=== PATIENT | female | born 1930 | race Caucasian/White ===

== ENCOUNTER 2017-04-06 18:39 | Emergency (ER) | payer MEDICARE, OTHER ==
[~2017-04-06] VITALS: Ht 157.5 cm; Wt 56.7 kg
--- NOTE | 2017-04-06 19:05 | NUR ---
PT A/OX4 BREATHING EFFORTLESSLY ON ROOM AIR, PT C/O RIGHT SHOULDER PAIN S/P FALL EARLIER TODAY, PT ON MONITOR, FAMILY AT BEDSIDE MD MADE AWARE WILL CONTINUE TO MONITOR.
[2017-04-06] MEDS ORDERED: HYDROCODONE/APAP 5/325MG 1 EACH TABLET ONE (19:26)
[2017-04-06] MEDS ORDERED: ONDANSETRON 4 MG TAB.RAPDIS ONE ×2 (19:26→21:41)
[2017-04-06] MEDS ORDERED: HYDROCODONE/APAP 5/325MG 1 EACH TABLET PO ONE (19:30)
[2017-04-06] MEDS ORDERED: ONDANSETRON 4 MG TAB.RAPDIS SL ONE ×2 (19:30→22:00)
--- NOTE | 2017-04-06 19:41 | NUR ---
XRAY AT BEDSIDE
--- NOTE | 2017-04-06 20:57 | NUR ---
SPOKE WITH ADMITTING ON, PRINTING OUT UPDATED FACE SHEET.
--- NOTE | 2017-04-06 22:05 | NUR ---
ADVISED DR. NARANJO OF PT'S SpO2 91%, WHICH HAS BEEN PT'S BASELINE UPON ARRIVAL TO ER. DR. NARANJO REEVALUATED THE PT AND STATED SHE IS STABLE FOR DISCHARGE.
--- NOTE | 2017-04-06 22:16 | NUR ---
Patient discharged to home in stable condition. Written and verbal after care instructions given. Patient verbalizes understanding of instruction. PT REPORT GIVEN TO EMT
--- NOTE | 2017-04-06 22:16 | NUR ---
Patient discharged by S ambulance for transport home in stable condition. Written and verbal after care instructions given. Patient verbalizes understanding of instruction. IV removed. Catheter intact and site benign. Pressure and 4x4 applied to site. No bleeding noted. VSS, NAD noted on DC.
[2017-04-06 22:17] VITALS: BP 118/76
== END 2017-04-06 22:18 | disposition home or self-care (01) ==
LOC: ER 18:41
DX: S42.201A Unspecified fracture of upper end of right humerus, initial encounter for closed fracture (principal); F32.9 Major depressive disorder, single episode, unspecified; F41.9 Anxiety disorder, unspecified; I10 Essential (primary) hypertension; W01.0XXA Fall on same level from slipping, tripping and stumbling without subsequent striking against object, initial encounter; Y93.89 Activity, other specified; Y92.89 Other specified places as the place of occurrence of the external cause; Y99.8 Other external cause status
CPT/HCPCS: 29105; 73060; 99284; A4606; Q0162 ×2; Z7610

== ENCOUNTER 2017-04-08 22:36 | Inpatient (IN) | payer OTHER, MEDICARE ==
[~2017-04-08] VITALS: Ht 157.5 cm; Wt 72.6 kg
--- NOTE | 2017-04-08 22:40 | NUR ---
TO BED 6 AN 87 YO FEMALE PT BIBA#88 FROM HOME, PT C/O RIGHT HIP PAIN AND NOT BEING ABLE TO WALK S/P GLF 3 DAYS AGO. NAD NOTED. VSS. NONDIAPHORETIC. PLACED ON CARDIAC AND VS MONITORING. COMFORT MEASURES RENDERED. MAINTAINED GOOD BODY ALIGNMENT.
--- NOTE | 2017-04-08 22:48 | NUR ---
XR TECH AT BEDSIDE.
--- NOTE | 2017-04-08 23:20 | NUR ---
started a saline lock on the left wrist g20, blood drawn and sent to lab.
[2017-04-08] MEDS ORDERED: ONDANSETRON HCL/PF 4 MG/2 ML VIAL IVP PRN (23:30)
[2017-04-08] MEDS ORDERED: ZOLPIDEM TARTRATE 5 MG TABLET PO PRN (23:30)
[2017-04-08] MEDS ORDERED: Z GUARD REMEDY 2 OZ OINT TP PRN (23:30)
[2017-04-08] MEDS ORDERED: ENOXAPARIN SODIUM 40 MG/0.4 ML DISP.SYRIN SQ SCH (23:30)
[2017-04-08] MEDS ORDERED: HYDROCODONE/APAP 5/325MG 1 EACH TABLET PO PRN (23:30)
[2017-04-08] MEDS ORDERED: MAGNESIUM HYDROXIDE 30 ML UDC PO PRN (23:30)
[2017-04-08] MEDS ORDERED: MAG HYDROX/AL HYDROX/SIMETH 30 ML UDC PO PRN (23:30)
[2017-04-08 23:33] LABS: EOSINOPHILS % (AUTO) 0.2 % (0.0-6.0); HEMATOCRIT 33 % (33-45); HEMOGLOBIN 9.9 g/dL (11.5-14.8); LYMPHOCYTES # (AUTO) 0.8 /CMM (0.8-4.8); LYMPHOCYTES % (AUTO) 6.2 % (20.0-44.0); MEAN CORPUSCULAR HEMOGLOBIN 21 PG (26.0-33.0); MEAN CORPUSCULAR HGB CONC 30 g/dl (31.0-36.0); MEAN CORPUSCULAR VOLUME 70 fL (82-100); MONOCYTES # (AUTO) 0.4 /CMM (0.1-1.30); MONOCYTES % (AUTO) 3.1 % (2.0-12.0); NEUTROPHILS # (AUTO) 11.9 /CMM (1.8-8.9); NEUTROPHILS % (AUTO) 90.5 % (43.0-81.0); PLATELET COUNT (AUTO) 103 /CMM (150-450); RDW COEFFICIENT OF VARIATION 15.1 (11.5-15.0); RED BLOOD CELL COUNT(AUTO) 4.64 MIL/uL (4.0-5.2); WHITE BLOOD COUNT (AUTO) 13.2 K/uL (4.3-11.0)
[2017-04-08 23:41] LABS: CALCIUM, SERUM 8.8 mg/dL (8.5-10.1); CARBON DIOXIDE 23 mmol/L (21-32); CHLORIDE 95 mmol/L (98-107); CREATININE 2.6 mg/dL (0.6-1.3); GLUCOSE 161 mg/dL (74-106); POTASSIUM 4.7 mmol/L (3.5-5.1); SODIUM SERUM 126 mmol/L (136-145); UREA NITROGEN, BLOOD 68 mg/dL (7-18)
--- NOTE | 2017-04-08 23:42 | NUR ---
CALLED [facility] WAS PAGED.
[2017-04-08] MEDS ORDERED: ATEN50TA PO (23:49)
[2017-04-08] MEDS ORDERED: TRAM50TA2 PO (23:49)
[2017-04-08] MEDS ORDERED: LORA0.5T PO (23:49)
[2017-04-08] MEDS ORDERED: TRIA1CAP6 PO (23:49)
[2017-04-08] MEDS ORDERED: SERT25TA5 PO (23:49)
--- NOTE | 2017-04-08 23:52 | NUR ---
Report givent to Nicole ALEXANDRE for admission and hiwot.
--- NOTE | 2017-04-08 23:54 | NUR ---
BED CHANGED TO 324-1
[2017-04-09] VITALS: BP 128/62
[2017-04-09 00:07] LABS: INR 1.14 (0.87-1.13); PROTHROMBIN TIME 11.9 SECS (9.5-12.7)
[2017-04-09 00:09] LABS: BAND % (MANUAL) 3 % (0.0-5.0); LYMPHOCYTES % (MANUAL) 12 % (16-48); MONOCYTES % (MANUAL) 4 % (0-11.0); NEUTROPHILS % (MANUAL) 81 (42-76)
--- NOTE | 2017-04-09 00:09 | NUR ---
Transferred patient to tele bed via als protocol, no incident.
[2017-04-09] MEDS ORDERED: ENOXAPARIN SODIUM 40 MG/0.4 ML DISP.SYRIN SQ ONE (00:11)
--- NOTE | 2017-04-09 00:30 | NUR ---
RN NOTES RECEIVED NEW ADMISSION FROM ER WITH DX OF RIGHT HIP FRACTURE. ALERT AND ORIENTED X4, NO SOB, NO RESPIRATORY DISTRESS, CALM, TOLERATING ROOM AIR, SP02 98%, LUNG SOUNDS ARE CLEAR, ABDOMEN SOFT AND NON-DISTENDED, S/P FALL FROM HOME 3 DAYS AGO, UNABLE TO WALK, NO COMPLAIN OF PAIN WHEN NOT MOVING, DURING TURNING AND SKIN ASSESSMENT, PATIENT REQUIRES 2 PERSON ASSIST IN TURNING AND PAIN IS 7/10 TO RIGHT HIP. NO PAIN WHEN NOT MOVING. LEFT WRIST PERIPHERAL LINE IS PATENT AND SECURED WITH TAPE. ABLE TO UNDERSTAND YORUBA AND MAINLY FARSI SPEAKING, DAUGHTER AND OTHER RELATIVE BY THE BEDSIDE. ORIENTED TO USE OF CALL LIGHT AND ROOM. MADE COMFORTABLE, CALL LIGHT WITHIN REACH.
--- NOTE | 2017-04-09 00:49 | NUR ---
NEW ORDER OF SHEA CATHETER INSERTION
[2017-04-09] MEDS ORDERED: LORAZEPAM 0.5 MG TABLET PO PRN (01:30)
[2017-04-09] MEDS ORDERED: CEFTRIAXONE 1 G VIAL ONE (04:08)
[2017-04-09] MEDS ORDERED: hydrALAZINE HCL 25 MG TABLET PO PRN (04:30)
[2017-04-09] MEDS ORDERED: IV NS 0.9% 1,000 ML IV SCH (04:30)
[2017-04-09] MEDS ORDERED: MORPHINE SULFATE INJ 2 MG/ML DISP.SYRIN IV PRN (04:30)
[2017-04-09] MEDS: CEFTRIAXONE 1 G in IV D5W 50 ML IV SCH (04:54)
--- NOTE | 2017-04-09 06:44 | NUR ---
RN NOTES PATIENT IS ALERT AND AWAKE, NO SOB, ON ROOM AIR, NO RESPIRATORY DISTRESS, NO COMPLAIN OF PAIN WHEN LYING DOWN AND STILL, COOPERATIVE WITH CARE, LEFT WRIST PERIPHERAL LINE IS PATENT AND INFUSING WELL, ALL NEEDS ATTENDED, CALL LIGHT WITHIN REACH.
[2017-04-09] MEDS: IV NS 0.9% 1,000 ML IV PRN ×2 (06:50→21:23)
[2017-04-09 07:02] LABS: EOSINOPHILS % (AUTO) 0.2 % (0.0-6.0); HEMATOCRIT 30 % (33-45); HEMOGLOBIN 9.5 g/dL (11.5-14.8); LYMPHOCYTES % (AUTO) 8.6 % (20.0-44.0); MEAN CORPUSCULAR HEMOGLOBIN 22 PG (26.0-33.0); MEAN CORPUSCULAR HGB CONC 31 g/dl (31.0-36.0); MEAN CORPUSCULAR VOLUME 69 fL (82-100); MONOCYTES # (AUTO) 0.5 /CMM (0.1-1.30); MONOCYTES % (AUTO) 4.9 % (2.0-12.0); NEUTROPHILS # (AUTO) 9.7 /CMM (1.8-8.9); NEUTROPHILS % (AUTO) 86.3 % (43.0-81.0); PLATELET COUNT (AUTO) 111 /CMM (150-450); RDW COEFFICIENT OF VARIATION 15.3 (11.5-15.0); RED BLOOD CELL COUNT(AUTO) 4.38 MIL/uL (4.0-5.2); WHITE BLOOD COUNT (AUTO) 11.2 K/uL (4.3-11.0)
[2017-04-09 07:21] LABS: CALCIUM, SERUM 8.5 mg/dL (8.5-10.1); CARBON DIOXIDE 26 mmol/L (21-32); CHLORIDE 97 mmol/L (98-107); CHOLESTEROL 114 mg/dL (<200); CREATININE 2.2 mg/dL (0.6-1.3); GLUCOSE 128 mg/dL (74-106); HDL CHOLESTEROL 44 mg/dL (40-60); LDL 56 mg/dL (0-99); MAGNESIUM 1.9 mg/dL (1.8-2.4); PHOSPHORUS 4.4 mg/dL (2.5-4.9); POTASSIUM 4.7 mmol/L (3.5-5.1); SODIUM SERUM 133 mmol/L (136-145); TRIGLYCERIDES 78 mg/dL (30-150); UREA NITROGEN, BLOOD 64 mg/dL (7-18)
[2017-04-09] MEDS ORDERED: HYDROMORPHONE 1 MG/1 ML DISP.SYRIN IV PRN (07:30)
--- NOTE | 2017-04-09 07:38 | NUR ---
EARLY CHILDHOOD LEAD TEACHER OPENING NOTE RECEIVED SBAR REPORT AT THE BEDSIDE. PATIENT IS A/O X3, SINGAPOREAN/FARSI SPEAKING. PATIENT IS ON ROOM AIR WITH SPO2 98%. NO SOB/DYSTRESS/DYSPNEA PRESENT. CHEST IS RISING EQUALLY BILATERALLY. REPORT INTERMITTENT ACHING PAIN RATING 4/10 IN R/HIP. PATIENT IS AWAKE AND RESPONSIVE IN BED. BED IS LOCKED IN LOWEST POSITION, SIDE RAILS UP X2, BED ALARM IS ON. CALL LIGHT WITHIN REACH. PATIENT EDUCATED TO CALL FOR ASSISTANCE USING THE CALL LIGHT VIA TEACH BACK METHOD. PATIENT VERBALIZED FUL UNDERSTANDING OF THE TEACHING. EXTERNAL LICENSED INVESTMENT SALES ASSISTANT READING AFIB 9CONTROLLED). Addendum: 04/09/17 at 0742 by STEWART JORGE RN WILL CONTINUE TO ASSESS AND MONITOR THROUGHOUT THE SHIFT.
[2017-04-09 08:00] VITALS: BP 118/73
[2017-04-09] MEDS ORDERED: ATENOLOL 50 MG TABLET PO SCH (09:00)
[2017-04-09] MEDS: ACETAMINOPHEN 325 MG TABLET PO PRN (09:01)
[2017-04-09] MEDS: SERTRALINE HCL 25 MG TABLET PO SCH (09:02)
[2017-04-09 09:40] LABS: THYROID STIMULATING HORMONE 0.131 uIU/mL (0.358-3.74)
--- NOTE | 2017-04-09 11:32 | NUR ---
MS RN NOTE PATIENT REFUSES DVT PUMPS STATING THEY ARE UNCOMFORTABLE AND AGGREVATE HER PAIN. EDUCATION PROVIDED. RISKS AND BENEFITS DISCUSSED WITH THE PATIENT. PATIENT STILL REFUSED DVT PUMPS. PUMPS ARE AT THE BEDSIDE.
[2017-04-09 12:00] VITALS: BP 121/80
[2017-04-09] MEDS ORDERED: SERTRALINE HCL 25 MG TABLET PO SCH (12:00)
[2017-04-09] MEDS: TRIAMTERENE/HYDROCHLOROTHIAZID (37.5/25MG) 1 UDCAP PO SCH (12:33)
[2017-04-09 16:00] VITALS: BP 116/71
--- NOTE | 2017-04-09 17:24 | NUR ---
PARKING REGULATION ENFORCEMENT OFFICER NOTE PATIENT'S SHEA IS LICKING. ATTEMPTED TO INFLATE THE BALLOON. THE SHEA IS LICKING. WILL RE-INSERT THE SHEA.
--- NOTE | 2017-04-09 18:57 | NUR ---
MACHINE STAPLER NOTE SHEA CATHETER BALLOON IS INFLATED AND THE CATHETER IS IRRIGATED. URINE FLOW IS SEEN. CATHETER IS FUNCTIONING WELL DRAINING YELLOW, CLEAR URINE.
--- NOTE | 2017-04-09 18:59 | NUR ---
BOTTOM SCRUBBER CLOSING NOTE PATIENT IS A/O X3, AWAKE AND RESPONSIVE.NO SOB/DISTRESS/DYSPNEA PRESENT. SPO2 95 % ON ROM AIR. CHEST IS RISING EQUALLY BILATERALLY. DENIES PAIN/DISCOMFORT AT THIS TIME. EXTERNAL MONITOR READING AFIB. ALL DUE MEDICATIONS ADMINISTERED. BED IS LOCKED IN LOWEST POSITION, SIDE RAILS UP X2, BED ALARM IS ON. CALL LIGHT WITHIN REACH. PATIENT EDUCATED TO CALL FOR ASSISTANCE USING THE CALL LIGHT VIA TEACH BACK METHOD. PATIENT VERBALIZED FULL UNDERSTANDING OF THE TEACHING. FAMILY AT THE BEDSIDE. ALL NEEDS ARE MET AT THIS TIME. WILL ENDORSE TO THE COLLECTIONS ATTORNEY NURSE FOR THE YONI.
[2017-04-09 20:00] VITALS: BP 121/67
--- NOTE | 2017-04-09 20:00 | NUR ---
RN NOTES RECEIVED PATIENT IN BED, ALERT AND ORIENTED X3, CALM, NO SOB, NO RESPIRATORY DISTRESS, LUNG SOUNDS ARE CLEAR, ABDOMEN SOFT AND NON-TENDER, NO COMPLAIN OF PAIN WHEN LYING DOWN AND NOT MOVING, WHEN TURNING, PATIENT COMPLAINS OF PAIN. LEFT WRIST PERIPHERAL LINE IS PATENT AND INFUSING WELL. KEPT SAFE AND COMFORTABLE, FAMILY MEMBER AT THE BEDSIDE, CALL LIGHT WITHIN REACH.
[2017-04-09] MEDS: LORAZEPAM 0.5 MG TABLET PO PRN (20:27)
[2017-04-09] MEDS ORDERED: ENOXAPARIN SODIUM 30 MG/0.3 ML DISP.SYRIN SQ SCH (21:00)
[2017-04-09] MEDS: HEPARIN SODIUM, PORCINE 5000 UNITS/1 ML VIAL SQ SCH (21:23)
--- NOTE | 2017-04-09 22:50 | NUR ---
RN NOTES PATIENT IS SCREAMING, PER PATIENT VERY ANXIOUS BECAUSE OF TRANSFER TO [facility]. REASSURED PATIENT THAT [facility] WILL GIVE HER THE BEST CARE. PATIENT REPOSITIONED, CALMED DOWN.
--- NOTE | 2017-04-10 02:52 | NUR ---
RN NOTES [facility] REP CALLED, ACKNOWLEDGED RECEIPT OF REQUEST FOR TRANSFER. WILL NOTIFY SO FOR BED AVAILABILITY. WILL REQUIRE IMAGING ON CD AND CONSENT FOR TRANSFER.
[2017-04-10] MEDS: CEFTRIAXONE 1 G in IV D5W 50 ML IV SCH (05:05)
[2017-04-10] MEDS: IV NS 0.9% 1,000 ML IV PRN ×2 (05:06→18:28)
--- NOTE | 2017-04-10 07:18 | NUR ---
MEDICAL ACCOUNTANT OPENING NOTE RECEIVED SBAR REPORT AT THE BEDSIDE. PATIENT IS A/O X3, ASLEEP, EASILY AWAKEN. PATIENT IS ON ROOM AIR WITH SPO2 97%. NO SOB/DISTRESS/DYSPNEA PRESENT. CHEST IS RISING EQUALLY BILATERALLY.PATIENT IS IN BED. BED IS LOCKED IN LOWEST POSITION, SIDE RAILS UP X2, BED ALARM IS ON. CALL LIGHT WITHIN REACH. PATIENT EDUCATED TO CALL FOR ASSISTANCE USING THE CALL LIGHT VIA TEACH BACK METHOD. PATIENT VERBALIZED FUL UNDERSTANDING OF THE TEACHING.
[2017-04-10 07:30] VITALS: BP 116/59
[2017-04-10 07:44] LABS: BASOPHILS % (AUTO) 0.1 % (0.0-2.0); EOSINOPHILS # (AUTO) 0.1 /CMM (0.0-0.7); EOSINOPHILS % (AUTO) 1.4 % (0.0-6.0); HEMATOCRIT 29 % (33-45); LYMPHOCYTES # (AUTO) 0.9 /CMM (0.8-4.8); LYMPHOCYTES % (AUTO) 11.9 % (20.0-44.0); MEAN CORPUSCULAR HEMOGLOBIN 22 PG (26.0-33.0); MEAN CORPUSCULAR HGB CONC 32 g/dl (31.0-36.0); MEAN CORPUSCULAR VOLUME 69 fL (82-100); MONOCYTES # (AUTO) 0.3 /CMM (0.1-1.30); MONOCYTES % (AUTO) 3.9 % (2.0-12.0); NEUTROPHILS # (AUTO) 6.3 /CMM (1.8-8.9); NEUTROPHILS % (AUTO) 82.7 % (43.0-81.0); PLATELET COUNT (AUTO) 115 /CMM (150-450); RDW COEFFICIENT OF VARIATION 14.7 (11.5-15.0); RED BLOOD CELL COUNT(AUTO) 4.15 MIL/uL (4.0-5.2); WHITE BLOOD COUNT (AUTO) 7.6 K/uL (4.3-11.0)
[2017-04-10 07:53] LABS: ALANINE AMINOTRANSFERASE 18 U/L (12-78); ALBUMIN 2.5 g/dL (3.4-5.0); ALKALINE PHOSPHATASE 48 U/L (46-116); ASPARTATE AMINOTRANSFERASE 22 U/L (15-37); BILIRUBIN,TOTAL 0.4 mg/dL (0.2-1.0); CALCIUM, SERUM 8.2 mg/dL (8.5-10.1); CARBON DIOXIDE 26 mmol/L (21-32); CHLORIDE 101 mmol/L (98-107); CREATININE 1.6 mg/dL (0.6-1.3); GLUCOSE 107 mg/dL (74-106); MAGNESIUM 1.7 mg/dL (1.8-2.4); PHOSPHORUS 3.4 mg/dL (2.5-4.9); POTASSIUM 4.3 mmol/L (3.5-5.1); SODIUM SERUM 135 mmol/L (136-145); TOTAL PROTEIN, SERUM 5.3 g/dL (6.4-8.2); UREA NITROGEN, BLOOD 53 mg/dL (7-18)
[2017-04-10 07:57] LABS: TROPONIN I 0.304 ng/mL (0.00-0.056)
[2017-04-10 08:00] VITALS: BP 116/59
[2017-04-10 08:36] LABS: IRON, SERUM 25 ug/dl (50-175); TOTAL IRON BINDING CAPACITY 206 ug/dl (250-450)
[2017-04-10] MEDS: HEPARIN SODIUM, PORCINE 5000 UNITS/1 ML VIAL SQ SCH ×2 (09:00→18:37)
[2017-04-10] MEDS: ATENOLOL 50 MG TABLET PO SCH (09:25)
[2017-04-10] MEDS: TRIAMTERENE/HYDROCHLOROTHIAZID (37.5/25MG) 1 UDCAP PO SCH (09:25)
[2017-04-10] MEDS: SERTRALINE HCL 25 MG TABLET PO SCH (09:25)
--- NOTE | 2017-04-10 09:30 | NUR ---
[employer]ALT [employer] SALES SUPERVISOR NOTE PATIENT REFUSED THE ENOXAPARIN STATING SHE MIGHT HAVE A SURGERY TODAY AT [facility] UPON TRANSFER AND DOES NOT WANT TO HAVE ENOXAPARIN ADMINISTERED.
[2017-04-10 10:51] LABS: LYMPHOCYTES % (MANUAL) 9 % (16-48); MONOCYTES % (MANUAL) 2 % (0-11.0); NEUTROPHILS % (MANUAL) 89 (42-76)
[2017-04-10] MEDS ORDERED: Magnesium 1GM/D5W 100ML PREMIX 100 ML IV SCH (11:45)
[2017-04-10 12:00] VITALS: BP 118/63
[2017-04-10] MEDS: ACETAMINOPHEN 325 MG TABLET PO PRN (13:53)
[2017-04-10 16:00] VITALS: BP 120/61
--- NOTE | 2017-04-10 19:25 | NUR ---
RN OPEN NOTES RECEIVED PATIENT AWAKE IN BED WITH FAMILY AT BEDSIDE. A/O X3. NO SIGNS OF DISTRESS OR DISCOMFORT. BREATHING EVEN AND UNLABORED. DENIES ANY PAIN AT THIS TIME. IV ACCESS IN L WRIST WITH NS INFUSING, PATENT AND INTACT, NO SIGNS OF REDNESS OR INFILTRATION. F/C INTACT, WITH CLEAR YELLOW FLUID DRAINING. BED IN LOW LOCKED POSITION WITH SIDE RAILS X2. CALL LIGHT WITHIN REACH. WILL CONTINUE TO MONITOR.
--- NOTE | 2017-04-10 19:43 | NUR ---
HEALTH EDUCATION DIRECTOR CLOSING NOTE SBAR REPORT GIVEN AT THE BEDSIDE. PATIENT IS A/O X3, AWAKE AND RESPONSIVE.NO SOB/DISTRESS/DYSPNEA PRESENT. SPO2 96 % ON ROM AIR. CHEST IS RISING EQUALLY BILATERALLY. DENIES PAIN/DISCOMFORT AT THIS TIME. ALL DUE MEDICATIONS ADMINISTERED. BED IS LOCKED IN LOWEST POSITION, SIDE RAILS UP X2, BED ALARM IS ON. CALL LIGHT WITHIN REACH. FAMILY AT THE BEDSIDE.PATIENT EDUCATED TO CALL FOR ASSISTANCE USING THE CALL LIGHT VIA TEACH BACK METHOD. PATIENT VERBALIZED FULL UNDERSTANDING OF THE TEACHING. ALL NEEDS ARE MET AT THIS TIME. ENDORSED TO THE REAL ESTATE DIRECTOR NURSE FOR THE YONI.
[2017-04-10 19:55] LABS: CALCIUM, SERUM 7.9 mg/dL (8.5-10.1); CARBON DIOXIDE 24 mmol/L (21-32); CHLORIDE 100 mmol/L (98-107); CREATININE 1.4 mg/dL (0.6-1.3); GLUCOSE 128 mg/dL (74-106); SODIUM SERUM 132 mmol/L (136-145); UREA NITROGEN, BLOOD 46 mg/dL (7-18)
[2017-04-10 19:56] LABS: POTASSIUM 5.9 mmol/L (3.5-5.1)
[2017-04-10 20:00] VITALS: BP 128/69
[2017-04-10] MEDS: LORAZEPAM 0.5 MG TABLET PO PRN (21:08)
--- NOTE | 2017-04-10 21:08 | NUR ---
RN NOTES ADMINISTERED ATIVAN .5MG ORDERED FOR INSOMNIA, AT PATIENT REQUEST. VSS. WILL CONTINUE TO MONITOR.
[2017-04-11] VITALS (8 sets, daily range): BP systolic 103–124; BP diastolic 59–78
[2017-04-11] MEDS: CEFTRIAXONE 1 G in IV D5W 50 ML IV SCH (04:41)
[2017-04-11] MEDS: IV NS 0.9% 1,000 ML IV PRN (04:42)
[2017-04-11 06:07] LABS: APPEARANCE,URINE CLEAR (CLEAR); BILIRUBIN,URINE NEGATIVE (NEGATIVE); BLOOD, URINE 2+ Ery/uL (NEGATIVE); COLOR,URINE YELLOW (YELLOW); KETONES,URINE NEGATIVE (NEGATIVE); LEUKOCYTE ESTERASE ,URINE NEGATIVE (NEGATIVE); NITRITE, URINE NEGATIVE (NEGATIVE); PROTEIN,URINE NEGATIVE (NEGATIVE); UGLUCOSE NEGATIVE (NEGATIVE); UROBILINOGEN,URINE 0.2 EU/dL (0.2)
[2017-04-11] MEDS ORDERED: BACITRACIN 50000 UNITS/VIAL ONE (06:17)
[2017-04-11] MEDS ORDERED: BUPIVACAINE 0.5 % PF 150 MG/30 ML VIAL ONE (06:17)
[2017-04-11] MEDS ORDERED: ANESTHESIA TRAY IN PYXIS 1 EA TRAY MC ONE (06:17)
--- NOTE | 2017-04-11 06:39 | NUR ---
RN CLOSING NOTES PATIENT WENT DOWN TO OR FOR SURGERY WITH FAMILY AT BEDSIDE IN STABLE CONDITION. A/O X3. NO SIGNS OF DISTRESS OR DISCOMFORT. BREATHING EVEN AND UNLABORED. IV ACCESS IN LAC PATENT AND INTACT, NO SIGNS OF REDNESS OR INFILTRATION. F/C INTACT, WITH CLEAR YELLOW FLUID DRAINING. ALL NEEDS MET. NO SIGNIFICANT CHANGES THROUGH THE NIGHT. WILL ENDORSE TO AM SHIFT FOR YONI.
--- NOTE | 2017-04-11 07:02 | NUR ---
RN NOTES VERBAL ORDERS FOR CHEM 7 AND 1 UNIT PRBC CARRIED OUT UNDER DR LAUREN .
[2017-04-11 07:07] LABS: BASOPHILS % (AUTO) 0.2 % (0.0-2.0); EOSINOPHILS # (AUTO) 0.1 /CMM (0.0-0.7); HEMATOCRIT 30 % (33-45); LYMPHOCYTES # (AUTO) 0.5 /CMM (0.8-4.8); LYMPHOCYTES % (AUTO) 8.5 % (20.0-44.0); MEAN CORPUSCULAR HEMOGLOBIN 21 PG (26.0-33.0); MEAN CORPUSCULAR HGB CONC 30 g/dl (31.0-36.0); MEAN CORPUSCULAR VOLUME 71 fL (82-100); MONOCYTES # (AUTO) 0.3 /CMM (0.1-1.30); MONOCYTES % (AUTO) 5.5 % (2.0-12.0); NEUTROPHILS # (AUTO) 5.2 /CMM (1.8-8.9); NEUTROPHILS % (AUTO) 84.8 % (43.0-81.0); PLATELET COUNT (AUTO) 115 /CMM (150-450); RED BLOOD CELL COUNT(AUTO) 4.21 MIL/uL (4.0-5.2); WHITE BLOOD COUNT (AUTO) 6.2 K/uL (4.3-11.0)
--- NOTE | 2017-04-11 07:15 | NUR ---
AM RN NOTE Patient went down for surgery per trimming caser nurse.
[2017-04-11 07:24] LABS: INR 1.05 (0.87-1.13); PROTHROMBIN TIME 10.9 SECS (9.5-12.7)
[2017-04-11 07:34] LABS: CARBON DIOXIDE 24 mmol/L (21-32); CHLORIDE 102 mmol/L (98-107); CREATININE 1.2 mg/dL (0.6-1.3); GLUCOSE 120 mg/dL (74-106); MAGNESIUM 1.9 mg/dL (1.8-2.4); SODIUM SERUM 135 mmol/L (136-145); UREA NITROGEN, BLOOD 40 mg/dL (7-18)
[2017-04-11] MEDS ORDERED: MIDAZOLAM HCL 2 MG/2ML VIAL ONE (07:38)
[2017-04-11] MEDS ORDERED: ROCURONIUM BROMIDE 50 MG/5 ML ONE (07:38)
[2017-04-11] MEDS ORDERED: SUCCINYLCHOLINE CHLORIDE 20 MG/ML VIAL ONE (07:38)
[2017-04-11] MEDS ORDERED: FENTANYL PF 250MCG/5ML AMPUL ONE (07:38)
[2017-04-11 08:19] LABS: BACTERIA,URINE Moderate /HPF (None Seen); SQUAMOUS EPITHELIAL CELL,UR Few /HPF (None Seen); WBC,URINE 0-2 /HPF (0-3)
[2017-04-11] MEDS: TRIAMTERENE/HYDROCHLOROTHIAZID (37.5/25MG) 1 UDCAP PO SCH (09:00)
[2017-04-11] MEDS: ATENOLOL 50 MG TABLET PO SCH (09:00)
[2017-04-11] MEDS: HEPARIN SODIUM, PORCINE 5000 UNITS/1 ML VIAL SQ SCH (09:00)
[2017-04-11] MEDS: SERTRALINE HCL 25 MG TABLET PO SCH (09:00)
[2017-04-11 10:45] LABS: EOSINOPHILS % (MANUAL) 2 % (0-4); LYMPHOCYTES % (MANUAL) 6 % (16-48); MONOCYTES % (MANUAL) 5 % (0-11.0); NEUTROPHILS % (MANUAL) 87 (42-76)
--- NOTE | 2017-04-11 11:24 | NUR ---
AM RN NOTE Received patient back from OR as accompanied by OR staff (Jocelin ALEXANDRE) at 1045. Pt awake, A/O X3 verbally responsive able to make needs known. Orders verified and noted. Pt placed on Tele monitor per Dr. Reyes (Ortho) SR 87's. Pt seen and assessed by Chantale DEE with new orders and noted. on IV fluids @50 ml/hr. IV site on LAC and left hand intact and patent. Right hip surgery site covered with dressing, intact and abduction pillow in place. SCD applied on left leg as per Chantale DEE. V/S stable. Will continue to monitor. Patient denies any pain or discomfort at this time. Addendum: 04/11/17 at 1131 by MAERK TINOCO RN ADD TO ABOVE ORDER CHANTALE DEE MADE AWARE THAT ALL MEDS WERE HELD THIS AM.
[2017-04-11] MEDS ORDERED: TRAMADOL HCL 50 MG TABLET PO PRN (11:30)
[2017-04-11] MEDS ORDERED: oxyCODONE/APAP (5/325 MG) 1 UDTAB TABLET PO PRN (11:30)
--- NOTE | 2017-04-11 11:36 | NUR ---
AM RN NOTE Hgb 9.0 Chantale DEE made aware with no blood transfusion orders at this time.
[2017-04-11] MEDS ORDERED: ACETAMINOPHEN 325 MG TABLET PO PRN (12:00)
[2017-04-11] MEDS ORDERED: ENOXAPARIN SODIUM 30 MG/0.3 ML DISP.SYRIN SQ SCH (12:30)
[2017-04-11] MEDS ORDERED: SENNOSIDES 8.6 MG TABLET PO PRN (12:30)
[2017-04-11] MEDS ORDERED: HYDROMORPHONE INJ 2 MG/ML DISP.SYRIN IV PRN (12:30)
--- NOTE | 2017-04-11 12:48 | NUR ---
RN NOTES SPOKE WITH DR FRY , NOTIFIED IF PT CAN BE PLACE TO DVT PUMPS . PER OK TO PLACE DVT PUMPS .
--- NOTE | 2017-04-11 14:30 | NUR ---
AM RN NOTE Patient awake,A/O X3 verbally responsive. Family at bedside. Pt c/o left eye irritation and burning. V/S BP119/70 T98.1 P106 R20. Patient denies any pain. Notified Chantale CASING FINISHER AND STUFFER and pt seen and assessed by her with NNO at this time.
[2017-04-11] MEDS: DOCUSATE SODIUM 100 MG CAPSULE PO SCH (17:58)
[2017-04-11] MEDS: CEFAZOLIN 2 GM in IV D5W 50 ML IV SCH (17:58)
--- NOTE | 2017-04-11 18:27 | NUR ---
AM RN NOTE Patient lying in her no acute distress noted. No SOB noted resp even and non-labored. O2 sat 97% at RA. IV site intact and patent. Family at bedside and Physical therapist at bedside. F/C intact and patent draining with yellow colored urine. Abduction pillow in place between legs. Dressing on right hip intact. Will endorse care to next shift.
--- NOTE | 2017-04-11 19:30 | NUR ---
RN NOTES RECEIVED PATIENT IN BED AWAKE, AO X 3, ABLE TO MAKE NEEDS KNOWN. NO ACUTE DISTRESS NOTED. DENIES ANY PAIN AT THIS TIME. TELE READING A. FIB HR 125. IV SITE PATENT, INTACT; IVF INFUSING ORDERED. SHEA CATH PATENT, INTACT; DRAINING CLEAR YELLOW URINE. ABDUCTION PILLOW WHILE IN BED. HIP PRECAUTIONS. ON LOW BED WITH BILATERAL UPPER SIDE RAILS UP. CALL LIGHT BUTTON WITHIN EASY REACH. WILL CONTINUE TO MONITOR.
--- NOTE | 2017-04-11 20:55 | NUR ---
RN NOTES DR. GARCIA MADE AWARE OF PATIENT'S TELE READING: A. FIB HR 155 BP 106/62; PATIENT IS SLEEPING; REFUSED TYLENOL FOR PAIN. MD ORDERED DIGOXIN 0.5 MG IV X 1 NOW; CHEM7, CBC, MAG LEVEL STAT; NOTED AND CARRIED OUT.
[2017-04-11] MEDS ORDERED: DIGOXIN INJ 0.5 MG/2 ML AMPUL ONE (20:58)
[2017-04-11] MEDS ORDERED: ENOXAPARIN SODIUM 40 MG/0.4 ML DISP.SYRIN SQ SCH (21:00)
[2017-04-11] MEDS ORDERED: DIGOXIN INJ 0.5 MG/2 ML AMPUL IV ONE (21:00)
[2017-04-11 21:56] LABS: BASOPHILS % (AUTO) 0.1 % (0.0-2.0); EOSINOPHILS % (AUTO) 0.1 % (0.0-6.0); HEMATOCRIT 28 % (33-45); HEMOGLOBIN 8.4 g/dL (11.5-14.8); LYMPHOCYTES # (AUTO) 0.5 /CMM (0.8-4.8); LYMPHOCYTES % (AUTO) 4.2 % (20.0-44.0); MEAN CORPUSCULAR HEMOGLOBIN 21 PG (26.0-33.0); MEAN CORPUSCULAR HGB CONC 30 g/dl (31.0-36.0); MEAN CORPUSCULAR VOLUME 70 fL (82-100); MONOCYTES # (AUTO) 0.5 /CMM (0.1-1.30); MONOCYTES % (AUTO) 4.7 % (2.0-12.0); NEUTROPHILS # (AUTO) 9.8 /CMM (1.8-8.9); NEUTROPHILS % (AUTO) 90.9 % (43.0-81.0); PLATELET COUNT (AUTO) 143 /CMM (150-450); RDW COEFFICIENT OF VARIATION 15.1 (11.5-15.0); RED BLOOD CELL COUNT(AUTO) 3.95 MIL/uL (4.0-5.2); WHITE BLOOD COUNT (AUTO) 10.8 K/uL (4.3-11.0)
[2017-04-11 22:02] LABS: CALCIUM, SERUM 7.9 mg/dL (8.5-10.1); CARBON DIOXIDE 22 mmol/L (21-32); CHLORIDE 102 mmol/L (98-107); CREATININE 1.3 mg/dL (0.6-1.3); GLUCOSE 137 mg/dL (74-106); MAGNESIUM 1.6 mg/dL (1.8-2.4); POTASSIUM 4.1 mmol/L (3.5-5.1); SODIUM SERUM 134 mmol/L (136-145); UREA NITROGEN, BLOOD 35 mg/dL (7-18)
--- NOTE | 2017-04-11 22:13 | NUR ---
RN NOTES DR. GARCIA MADE AWARE THAT PATIENT IS A. FIB HR 160 BP 116/84 POST ADMINISTRATION OF DIGOXIN 0.5 MG IV. PATIENT IS SLEEPING; NO SIGNS OF PAIN NOTED. PER DR. GARCIA, NO FURTHER ORDERS; HE WILL SEE PATIENT IN AM.
[2017-04-12] VITALS (22 sets, daily range): BP systolic 98–131; BP diastolic 39–85
[2017-04-12] MEDS: CEFAZOLIN 2 GM in IV D5W 50 ML IV SCH ×2 (00:51→08:29)
[2017-04-12] MEDS: CEFTRIAXONE 1 G in IV D5W 50 ML IV SCH (03:43)
--- NOTE | 2017-04-12 06:09 | NUR ---
RN NOTES PATIENT ASLEEP, EASILY AROUSABLE. RESPIRATIONS EVEN. NO SIGNS OF PAIN NOTED. TELE READING A. FIB HR 134. DUE MEDS GIVEN WITH NO ASE NOTED. NEEDS ATTENDED. RIGHT ARM IN SLING. ABDUCTOR PILLOW IN PLACE. SAFETY PRECAUTIONS AND COMFORT MEASURES IN PLACE. WILL GIVE REPORT TO DAY SHIFT FOR CONTINUITY OF CARE.
[2017-04-12 06:50] LABS: CARBON DIOXIDE 23 mmol/L (21-32); CHLORIDE 101 mmol/L (98-107); CREATININE 1.3 mg/dL (0.6-1.3); GLUCOSE 128 mg/dL (74-106); MAGNESIUM 1.7 mg/dL (1.8-2.4); PHOSPHORUS 3.3 mg/dL (2.5-4.9); POTASSIUM 3.9 mmol/L (3.5-5.1); SODIUM SERUM 133 mmol/L (136-145); UREA NITROGEN, BLOOD 32 mg/dL (7-18)
[2017-04-12 07:04] LABS: HEMATOCRIT 28 % (33-45); HEMOGLOBIN 8.4 g/dL (11.5-14.8); LYMPHOCYTES # (AUTO) 0.6 /CMM (0.8-4.8); MEAN CORPUSCULAR HEMOGLOBIN 21 PG (26.0-33.0); MEAN CORPUSCULAR HGB CONC 30 g/dl (31.0-36.0); MEAN CORPUSCULAR VOLUME 71 fL (82-100); MONOCYTES # (AUTO) 0.6 /CMM (0.1-1.30); MONOCYTES % (AUTO) 6.5 % (2.0-12.0); NEUTROPHILS # (AUTO) 8.6 /CMM (1.8-8.9); NEUTROPHILS % (AUTO) 87.5 % (43.0-81.0); PLATELET COUNT (AUTO) 137 /CMM (150-450); RDW COEFFICIENT OF VARIATION 14.5 (11.5-15.0); RED BLOOD CELL COUNT(AUTO) 3.92 MIL/uL (4.0-5.2); WHITE BLOOD COUNT (AUTO) 9.8 K/uL (4.3-11.0)
--- NOTE | 2017-04-12 07:10 | NUR ---
dental therapist Initial notes Received patient in bed, awake, head of bed elevated, no SOB or distress noted, on room air and tolerated well. On tele monitor Afib heart rate of 146, per night guard RN Dr. Pandya was made aware. IV intact and patent with IVF infusing well, cazares in placed attached to drainage bag with no sediment noted. Alert and oriented x 3, verbally responsive and able to make needs known. No complaint of pain or discomfort noted at this time, nor chest pain. Will continue to monitor accordingly.
[2017-04-12] MEDS: IV NS 0.9% 1,000 ML IV PRN (07:16)
[2017-04-12] MEDS ORDERED: AMIODARONE 900 MG in IV D5W 500 ML IV PRN (08:30)
[2017-04-12] MEDS ORDERED: AMIODARONE 150 MG in IV D5W 100 ML IV ONE (08:30)
[2017-04-12] MEDS: TRIAMTERENE/HYDROCHLOROTHIAZID (37.5/25MG) 1 UDCAP PO SCH (08:30)
[2017-04-12] MEDS: SERTRALINE HCL 25 MG TABLET PO SCH (08:30)
[2017-04-12] MEDS: ATENOLOL 50 MG TABLET PO SCH (08:31)
[2017-04-12] MEDS: DOCUSATE SODIUM 100 MG CAPSULE PO SCH ×2 (08:31→16:59)
[2017-04-12] MEDS: RIVAROXABAN 10 MG TABLET PO SCH (08:43)
[2017-04-12] MEDS ORDERED: RIVAROXABAN 10 MG TABLET PO SCH (09:00)
--- NOTE | 2017-04-12 09:00 | NUR ---
telecommunication engineermicrocomputer support specialist notes Called [facility] for report and spoke to Ashley and report given. Informed daughter regarding the transfer and made aware. Dr. Pandya came and ordered to transfer the patient to [facility] for Afib and to get Amiodarone drip. All PO meds given and tolerated well. Ancef IV ATB given and infusing well. Endorsed to [facility] RN to continue care.
--- NOTE | 2017-04-12 09:00 | NUR ---
[facility] RECEIVED A REPORT FROM NURSE PERALTA FOR PT ADMITTED FOR UNCONTROLLED A-FIB. AWAITING FOR PT'S ARRIVAL.
--- NOTE | 2017-04-12 09:15 | NUR ---
TD/SUPERVISOR SULFURIC ACID PLANT FROM [facility] PT ARRIVED VIA BED, ACCOMPANIED BY NURSE FABIAN. PT A/O X 3, DENIES PAIN AT THIS TIME. PT ON ROOM AIR SATURATING WELL, LUNG SOUNDS CLEAR. PLACED ON TELE MONITORING NOTED WITH UNCONTROLLED A-FIB, HR 117. ON GOING IV INFUSION OF ANCEF, IV SITE PATENT WITH NO S/S OF INFECTION. PT WITH SLING ON THE RIGHT ARM, SURGICAL SITE ON RIGHT HIP CLEAN & DRY, ABDUCTION CUSHION IN PLACED. SHEA CATHETER INTACT WITH YELLOW URINE OUTPUT. PT'S DAUGHTER AT BEDSIDE. ORIENTED PT TO NEW ROOM, INFORM ABOUT THE PLAN OF CARE, PT AND DAUGHTER VERBALIZED UNDERSTANDING. CL WITHIN REACHED AND SAFETY MAINTAINED.
--- NOTE | 2017-04-12 09:25 | NUR ---
TD/RN AMIODARONE BOLUS AMIODARONE BOLUS INITIATED. HEART RATE AT 117, POST BOLUS, HR DECREASED TO 106. AMIODARONE DRIP INITIATED @ 1MG/MIN. ON GOING MONITORING.
[2017-04-12] MEDS: oxyCODONE IR immediate release 5 MG CAPSULE PO PRN (09:57)
[2017-04-12] MEDS: Magnesium 1GM/D5W 100ML PREMIX 100 ML IV SCH ×2 (09:59→13:16)
[2017-04-12] MEDS ORDERED: AMIODARONE 900 MG in IV D5W 482 ML IV PRN (10:00)
[2017-04-12 10:03] LABS: NEUTROPHILS % (MANUAL) 91 (42-76)
[2017-04-12 10:04] LABS: BAND % (MANUAL) 1 % (0.0-5.0); LYMPHOCYTES % (MANUAL) 3 % (16-48); MONOCYTES % (MANUAL) 5 % (0-11.0)
--- NOTE | 2017-04-12 11:55 | NUR ---
ICU/HARDWARE SALES ASSISTANT TO ICU REPORT GIVEN TO NURSE CHEW AT BEDSIDE. PT ENDORSED TO CONTINUE CARE. PT WITH CONTROLLED A-FIB, AMIODARONE DRIP ON GOING @ 1MG/MIN AND NS @ 50CC/HR, IV SITES PATENT WITH NO S/S OF INFECTION. SHEA CATHETER INTACT. ABDUCTION CUSHION IN PLACED. ENDORSED TO GIVE PT (1) ONE MORE BAG OF MAGNESIUM.
--- NOTE | 2017-04-12 12:00 | NUR ---
ICU/RN PT TRANSFER FROM [facility].A-FIB ON MONITOR .HR-80-90 BPM.ON AMIODARONE DRIP ORDERED.BP STABLE.AFEBRILE .NO PAIN REPORTED AT THIS TIME.PERIFERAL IV INFUSING ORDERED.PT IS AWAKE ,ALERT,ORIENTED-4.F/C DRAINING WITH YELLOW URINE.PT IS POST FALL ,SECOND POST OP DAY RIGHT HIP FX.DRESSING IS INTACT.RIGHT ARM FX.SLING ON.MULTIPLY BRUISES ALL OVER THE BODY NOTED.FAMILY AT BED SIDE.
--- NOTE | 2017-04-12 17:00 | NUR ---
ICU/RN PM CARE PROVIDED.PT PLACED ON [employer] MATRASS.REDNESS ON JUNITO AREA NOTED.PT C/O OF PAIN .0.1 MG DILAUDID IV GIVEN ORDERED.REPOSITION FOR COMFORT.V/S STABLE AFEBRILE . STILL ON 0.5 MG AMIODARONE DRIP.SR ON MONITOR.CONTINUE MONITORING.FAMILY AT BEDSIDE.
--- NOTE | 2017-04-12 19:25 | NUR ---
RN NOTES RECEIVED PT AWAKE ALERT ORIENTED X 3 ABLE TO MAKE KNOWN NEEDS. DENIES PAIN AT THIS TIME. NO ACUTE RESP DISTRESS SHOWS. IN RA. TELE MONITOR REVEALS SR HR 83 CONTINUING AMIODARONE DRIP @ 0.5 MG/HR DUE TO EPISODE OF A-FIB THIS MORNING @ THE [facility] G 20 AND RIGHT HAND G 22 WITH NS @ 50 CC/HR WARMTH TO TOUCH, TEMP 99.2 DEG FAHRENHEIT. F/C DRAINED WITH YELLOW CLEAR COLOR URINE VIA GRAVITY. ABDUCTION PILLOW ON RIGHT HIP SX. IN PLACED. KEPT PT CLEAN AND COMFORTABLE IN BED. WILL MONITOR CLOSELY.
--- NOTE | 2017-04-12 22:25 | NUR ---
RN NOTES PT ASLEEP WELL AT THIS TIME. REMAINED SINUS RHYTHM HR 79. WILL CONTINUE TO MONITOR.
[2017-04-13] VITALS (30 sets, daily range): BP systolic 97–134; BP diastolic 35–75
--- NOTE | 2017-04-13 00:30 | NUR ---
RN NOTES ENCOURAGED PT FOR BEDBATH BUT PT REFUSED. PER PATIENT SHE JUST GOT BEDBATH AND SHE STILL CLEAN. BUT AGREES TO TAKE PICTURE FOR SKIN WEEKLY SKIN RE-ASSESSMENT.
--- NOTE | 2017-04-13 02:00 | NUR ---
RN NOTES RECEIVED A CALL FROM [facility] NURSE FROM [facility] INFORMING THAT THE PATIENT WILL BE TRANSFER TO [place] FOR SURGERY. INFORMED HER THAT THE PATIENT ALREADY HAD RIGHT HIP SURGERY HERE AT [facility] UNDER DR. JEFFERSON. PATIENT ASLEEP WELL AT THIS TIME WITHOUT ANY CHEST PAIN OR PAIN SHOWS.
[2017-04-13] MEDS: CEFTRIAXONE 1 G in IV D5W 50 ML IV SCH (03:51)
[2017-04-13 04:59] LABS: BASOPHILS % (AUTO) 0.3 % (0.0-2.0); EOSINOPHILS % (AUTO) 0.4 % (0.0-6.0); HEMATOCRIT 24 % (33-45); HEMOGLOBIN 7.5 g/dL (11.5-14.8); LYMPHOCYTES # (AUTO) 0.8 /CMM (0.8-4.8); LYMPHOCYTES % (AUTO) 7.3 % (20.0-44.0); MEAN CORPUSCULAR HEMOGLOBIN 22 PG (26.0-33.0); MEAN CORPUSCULAR HGB CONC 31 g/dl (31.0-36.0); MEAN CORPUSCULAR VOLUME 70 fL (82-100); MONOCYTES # (AUTO) 0.6 /CMM (0.1-1.30); MONOCYTES % (AUTO) 6.1 % (2.0-12.0); NEUTROPHILS # (AUTO) 9.1 /CMM (1.8-8.9); NEUTROPHILS % (AUTO) 85.9 % (43.0-81.0); PLATELET COUNT (AUTO) 119 /CMM (150-450); RDW COEFFICIENT OF VARIATION 15.1 (11.5-15.0); RED BLOOD CELL COUNT(AUTO) 3.47 MIL/uL (4.0-5.2); WHITE BLOOD COUNT (AUTO) 10.6 K/uL (4.3-11.0)
[2017-04-13 05:12] LABS: ALANINE AMINOTRANSFERASE 10 U/L (12-78); ALBUMIN 1.9 g/dL (3.4-5.0); ALKALINE PHOSPHATASE 51 U/L (46-116); ASPARTATE AMINOTRANSFERASE 21 U/L (15-37); BILIRUBIN,TOTAL 0.5 mg/dL (0.2-1.0); CALCIUM, SERUM 8.2 mg/dL (8.5-10.1); CARBON DIOXIDE 23 mmol/L (21-32); CHLORIDE 99 mmol/L (98-107); CREATININE 1.3 mg/dL (0.6-1.3); GLUCOSE 139 mg/dL (74-106); MAGNESIUM 2.1 mg/dL (1.8-2.4); POTASSIUM 4.2 mmol/L (3.5-5.1); SODIUM SERUM 129 mmol/L (136-145); TROPONIN I 0.128 ng/mL (0.00-0.056); UREA NITROGEN, BLOOD 35 mg/dL (7-18)
[2017-04-13] MEDS: IV NS 0.9% 1,000 ML IV PRN (05:54)
--- NOTE | 2017-04-13 06:34 | NUR ---
RN NOTES PATIENT ASLEEP WELL ON BED. BREATHING EVEN AND UNLABORED. DENIES PAIN NOR CHEST PAIN REMAINED IN STABLE CONDITION THROUGHOUT THE SHIFT. AFEBRILE. VS CONTROLLED. AMIODARONE DRIP CONTINUE AT THE RATED OF 0.5 MG/HR AND IVF AT 50 CC/HR IV SITE INTACT AND PATENT. DUE MEDICINE TOLERATED WELL. CONTINUE TO ENCOURAGED TO TURNED AND REPOSITIONED WHILE ON BED FOR SKIN MANAGEMENT PT. REQUESTED NOT TO BE TURNED MORE OFTEN SINCE SHE IS COMFORTABLE IN HER POSITION AT THIS TIME. EDUCATION GIVEN REGARDING SKIN MANAGEMENT. SHEA CATH INTACT AND PATENT. KEPT PT CLEAN AND DRY FACIAL WASH MADE. CALL LIGHT KEPT WITHIN EASY REACH. WILL ENDORSED CONTINUITY OF CARE TO AM NURSE.
--- NOTE | 2017-04-13 07:10 | NUR ---
RN INITIAL NOTES RECEIVED PT ASLEEP, EASILY AROUSABLE. PT IN ROOM AIR. 02 SAT 98%. NO SIGNS RESPIRATORY DISTRESS NOTED. NO SIGNS OF PAIN NOTED. IV LINES IN PLACE. ON AMIO AT 0.5MG/MIN. INFUSING NS AT 50ML/HR, TOLERATING WELL. FC IN PLACE. NO HEMATURIA NOTED. DRESSING ON RIGHT HIP CLEAN AND DRY. NO SIGNS OF BLEEDING NOTED. ABDUCTOR PILLOW ON. PT COMFORTABLE. WILL MONITOR.
--- NOTE | 2017-04-13 07:45 | NUR ---
RN NOTES SEEN AND EXAMINED BY DR. GARCIA. PT ON AMIO DRIP AT 0.5MG/MIN, PT'S GOES SINUS RHYTHM TO A.FIB ON AND OFF. HR ON 70-80S. MD AWARE OF CURRENT LAB VALUES: HGB 7.5, HCT 24. SP RIGHT HIP REPLACEMENT. MD ORDERED 1 UNIT OF PRBC. AWARE OF LATEST TROPONIN 0.128. ORDERS NOTED AND CARRIED OUT. PT AND DAUGHTER AT BEDSIDE AWARE. WILL MONITOR.
[2017-04-13] MEDS: TRIAMTERENE/HYDROCHLOROTHIAZID (37.5/25MG) 1 UDCAP PO SCH (08:19)
[2017-04-13] MEDS: SENNOSIDES/DOCUSATE SODIUM 1 TAB TABLET PO SCH (08:19)
[2017-04-13] MEDS: ATENOLOL 50 MG TABLET PO SCH (08:21)
[2017-04-13] MEDS: SERTRALINE HCL 25 MG TABLET PO SCH (08:21)
--- NOTE | 2017-04-13 09:00 | NUR ---
RN NOTES SEEN AND EXAMINED BY DR. JEFFERSON. AWARE OF CURRENT LAB VALUES: WBC 10.6, HGB 7.5, HCT 24, PLATELET 119. HAS ORDER FOR 1 UNIT PRBC. SODIUM 129, BUN 35. FOR PT EVAL. WILL CONTINUE TO MONITOR.
[2017-04-13] MEDS: AMIODARONE HCL 200 MG TABLET PO SCH ×3 (10:16→17:15)
--- NOTE | 2017-04-13 11:15 | NUR ---
RN NOTES SEEN AND EXAMINED BY JORDON COLLAZO NP. AWARE OF CURRENT LAB RESULT: HGB 7.5, HCT 24, SODIUM 129, BUN 35. HAS ORDER FOR 1 UNIT PRBC AND PT EVAL. ORDERED LASIX POST TRANSFUSION. NOTED AND CARRIED OUT. WILL MONITOR.
[2017-04-13] MEDS: oxyCODONE IR immediate release 5 MG CAPSULE PO PRN (11:28)
[2017-04-13] MEDS ORDERED: FUROSEMIDE 20 MG/2 ML VIAL IV ONE (15:00)
[2017-04-13] MEDS: TRAMADOL HCL 50 MG TABLET PO PRN (15:48)
[2017-04-13] MEDS: RIVAROXABAN 10 MG TABLET PO SCH (17:16)
--- NOTE | 2017-04-13 18:45 | NUR ---
RN CLOSING NOTES NO SIGNIFICANT CHANGE NOTED. NO SOB NOTED. DENIES ANY PAIN. MIDLINE IN PLACE. SP BT, 1 UNIT OF PRBC. NO TRANSFUSION REACTION NOTED. FC IN PLACE. ADEQUATE OUTPUT NOTED. KEPT CLEAN AND DRY. ASSISTED IN REPOSITIONING. ALL NEEDS ATTENDED AND MET. CALL LIGHT WITHIN REACH. KEPT COMFORTABLE. WILL ENDORSE FOR CONTINUITY OF CARE.
--- NOTE | 2017-04-13 19:34 | NUR ---
RN OPENING NOTES: RECEIVED PT ON BED AWAKE AND ALERT X4; ON ROOM AIR, NOT IN APPARENT DISTRESS. NOTED TO BE SR ON THE MONITOR HR AT 90 BPM. IV ACCESS ON GILMER MIDLINE, PATENT AND FLUSHING WELL. FC INTACT, TO A CLOSED SYSTEM, MONITORED UO. SAFETY MEASURES ENSURED. DENIES PAIN AT THIS TIME. CURRENTLY HAVING A BOWEL MOVEMENT DURING ROUNDS. TO RENDER GOOD SKIN CARE. CONTINUOUSLY MONITORED.
[2017-04-14] VITALS (28 sets, daily range): BP systolic 91–124; BP diastolic 37–89
--- NOTE | 2017-04-14 | NUR ---
MIDSHIFT NOTES: PATIENT ASLEEP; NOT IN APPARENT DISTRESS. TO CONTINUE TO MONITOR.
[2017-04-14] MEDS: CEFTRIAXONE 1 G in IV D5W 50 ML IV SCH (03:34)
[2017-04-14 04:56] LABS: BASOPHILS % (AUTO) 0.2 % (0.0-2.0); EOSINOPHILS # (AUTO) 0.2 /CMM (0.0-0.7); EOSINOPHILS % (AUTO) 1.4 % (0.0-6.0); HEMATOCRIT 28 % (33-45); HEMOGLOBIN 9.1 g/dL (11.5-14.8); LYMPHOCYTES # (AUTO) 0.6 /CMM (0.8-4.8); MEAN CORPUSCULAR HEMOGLOBIN 24 PG (26.0-33.0); MEAN CORPUSCULAR HGB CONC 33 g/dl (31.0-36.0); MEAN CORPUSCULAR VOLUME 72 fL (82-100); MONOCYTES # (AUTO) 0.6 /CMM (0.1-1.30); MONOCYTES % (AUTO) 5.5 % (2.0-12.0); NEUTROPHILS # (AUTO) 9.7 /CMM (1.8-8.9); NEUTROPHILS % (AUTO) 87.9 % (43.0-81.0); PLATELET COUNT (AUTO) 133 /CMM (150-450); RDW COEFFICIENT OF VARIATION 18.2 (11.5-15.0); RED BLOOD CELL COUNT(AUTO) 3.85 MIL/uL (4.0-5.2); WHITE BLOOD COUNT (AUTO) 11.1 K/uL (4.3-11.0)
[2017-04-14 05:07] LABS: ALANINE AMINOTRANSFERASE 8 U/L (12-78); ALBUMIN 1.8 g/dL (3.4-5.0); ALKALINE PHOSPHATASE 59 U/L (46-116); ASPARTATE AMINOTRANSFERASE 21 U/L (15-37); BILIRUBIN,TOTAL 0.8 mg/dL (0.2-1.0); CALCIUM, SERUM 8.1 mg/dL (8.5-10.1); CARBON DIOXIDE 24 mmol/L (21-32); CHLORIDE 96 mmol/L (98-107); CREATININE 1.2 mg/dL (0.6-1.3); GLUCOSE 113 mg/dL (74-106); MAGNESIUM 1.6 mg/dL (1.8-2.4); PHOSPHORUS 2.9 mg/dL (2.5-4.9); POTASSIUM 3.7 mmol/L (3.5-5.1); SODIUM SERUM 128 mmol/L (136-145); TOTAL PROTEIN, SERUM 4.8 g/dL (6.4-8.2); UREA NITROGEN, BLOOD 35 mg/dL (7-18)
--- NOTE | 2017-04-14 06:38 | NUR ---
RN CLOSING NOTES; PATIENT REMAINED ON BED NOT IN APPARENT DISTRESS. REMAINED ON ROOM AIR. SINUS RHYTHM ON THE MONITOR, AT A CONTROLLED RATE OF 80'S. DENIES ANY PAIN. SHEA CATH REMOVED AT 0500; UO DRAINED AND DOCUMENTED. MONITORED FOR URINE OUTPUT POST FC REMOVAL; AND FOR POSSIBLE RETENTION. SAFETY MEASURES AND SKIN PROTECTIVE MEASURES ENSURED. NO ACTIVE BLEEDING NOTED. CONTINUOUSLY MONITORED. TO ENDORSE TO AM SHIFT RN.
--- NOTE | 2017-04-14 07:10 | NUR ---
RN INITIAL NOTES RECEIVED PT AWAKE, A/OX3-4. PT IN ROOM AIR. 02 SAT 100%. NO SIGNS RESPIRATORY DISTRESS NOTED. HOB ELEVATED. DENIES ANY PAIN. GILMER MIDLINE IN PLACE. DRESSING ON RIGHT HIP CLEAN AND DRY. NO SIGNS OF BLEEDING NOTED. ABDUCTOR PILLOW ON. REPOSITIONED. PT COMFORTABLE. WILL MONITOR.
[2017-04-14] MEDS: SENNOSIDES/DOCUSATE SODIUM 1 TAB TABLET PO SCH (08:21)
[2017-04-14] MEDS: ATENOLOL 50 MG TABLET PO SCH (08:21)
[2017-04-14] MEDS: AMIODARONE HCL 200 MG TABLET PO SCH ×3 (08:21→17:11)
[2017-04-14] MEDS: SERTRALINE HCL 25 MG TABLET PO SCH (08:21)
--- NOTE | 2017-04-14 09:00 | NUR ---
RN NOTES SEEN AND EXAMINED BY DR. JEFFERSON. CHECKED RIGHT HIP SURGICAL SITE. CLEAN AND DRY. NO BLEEDING NOTED. NO SIGNS OF INFECTION NOTED. DRESSING CHANGED BY . PT ON PT SERVICES. NO ADDITIONAL ORDER MADE.
[2017-04-14] MEDS: TRAMADOL HCL 50 MG TABLET PO PRN (09:01)
[2017-04-14] MEDS: Magnesium 1GM/D5W 100ML PREMIX 100 ML IV SCH ×2 (09:47→11:05)
--- NOTE | 2017-04-14 10:10 | NUR ---
RN NOTES SEEN AND EXAMINED BY DR. GARCIA. AWARE OF CURRENT LAB VALUES. PT ON SINUS RHYTHM, ON AMIO PO. NO ORDER MADE. WILL MONITOR.
--- NOTE | 2017-04-14 15:00 | NUR ---
RN NOTES SEEN AND EXAMINED BY CHUY PONCE DNP. AWARE OF CURRENT LAB VALUES: WBC 11.1, HGB 9.1, HCT 28, PLATELET 133, SODIUM 128, BUN 35. MAGNESIUM 1.6, REPLACED WITH BAGS. PT WILL BE TRANSFERRED TO [facility] IN AM. FAMILY AWARE.
[2017-04-14] MEDS: RIVAROXABAN 10 MG TABLET PO SCH (17:11)
--- NOTE | 2017-04-14 18:39 | NUR ---
RN CLOSING NOTES PT REMAINS STABLE. NO SIGNIFICANT CHANGE NOTED. KEPT HOB ELEVATED. PAIN WELL MANAGED. SLING ON RIGHT ARM IN PLACE. DRESSING ON RIGHT HIP CLEAN AND DRY. ABDUCTOR PILLOW ON. KEPT CLEAN AND DRY. REPOSITIONED. KEPT COMFORTABLE. ALL NEEDS MET. CALL LIGHT WITHIN REACH.
--- NOTE | 2017-04-14 19:30 | NUR ---
INSIGHT DIRECTOR INITIAL NOTE PT RECEIVED SLEEPING IN BED COMFORTABLY. A/O X3 AND ABLE TO MAKE NEEDS KNOWN. ON ROOM AIR AND SATURATING 99%. BREATHING REGULAR, EVEN AND UNLABORED. TELE- SR 73. RIGHT ARM IN SLING. ABDUCTOR PILLOW IN PLACE. IV GILMER MIDLINE CLEAN, DRY AND FLUSHING WELL. CALL LIGHT WITHIN REACH. WILL CONTINUE TO MONITOR.
--- NOTE | 2017-04-14 19:40 | NUR ---
04[facility]14[facility]17 [facility] TRANSP[facility]ATION VIA [facility] TRIP# [id number] DOOR FRAME BUILDER AT 1130 PER FAMILY'S REQUEST. BEN TRAMMELL NURSE MADE AWARE. NURSE TO GIVE REPORT TO [phone]. Addendum: 04/14/17 at 1940 by BLACK TOUSSAINT CMG Amended: Links added.
[2017-04-15] VITALS (14 sets, daily range): BP systolic 89–123; BP diastolic 37–112
[2017-04-15] MEDS: CEFTRIAXONE 1 G in IV D5W 50 ML IV SCH (03:16)
[2017-04-15 04:40] LABS: EOSINOPHILS # (AUTO) 0.3 /CMM (0.0-0.7); EOSINOPHILS % (AUTO) 2.9 % (0.0-6.0); HEMATOCRIT 26 % (33-45); HEMOGLOBIN 8.4 g/dL (11.5-14.8); LYMPHOCYTES # (AUTO) 0.6 /CMM (0.8-4.8); LYMPHOCYTES % (AUTO) 6.7 % (20.0-44.0); MEAN CORPUSCULAR HEMOGLOBIN 24 PG (26.0-33.0); MEAN CORPUSCULAR HGB CONC 32 g/dl (31.0-36.0); MEAN CORPUSCULAR VOLUME 74 fL (82-100); MONOCYTES # (AUTO) 0.6 /CMM (0.1-1.30); MONOCYTES % (AUTO) 6.6 % (2.0-12.0); NEUTROPHILS # (AUTO) 7.5 /CMM (1.8-8.9); NEUTROPHILS % (AUTO) 83.8 % (43.0-81.0); PLATELET COUNT (AUTO) 150 /CMM (150-450); RDW COEFFICIENT OF VARIATION 19.6 (11.5-15.0); RED BLOOD CELL COUNT(AUTO) 3.53 MIL/uL (4.0-5.2); WHITE BLOOD COUNT (AUTO) 8.9 K/uL (4.3-11.0)
[2017-04-15 05:02] LABS: CARBON DIOXIDE 25 mmol/L (21-32); CHLORIDE 94 mmol/L (98-107); CREATININE 1.1 mg/dL (0.6-1.3); GLUCOSE 103 mg/dL (74-106); POTASSIUM 3.6 mmol/L (3.5-5.1); SODIUM SERUM 127 mmol/L (136-145); UREA NITROGEN, BLOOD 34 mg/dL (7-18)
--- NOTE | 2017-04-15 06:47 | NUR ---
COTTON TIER CLOSING NOTE PT REMAINED STABLE DURING SHIFT. NO SOB NOTED. NO C/O PAIN OR DISCOMFORT. REPOSITIONED Q2H. KEPT CLEAN AND DRY. IV IN PLACE. ABDUCTOR PILLOW IN PLACE. CALL LIGHT WITHIN REACH. WILL ENDORSE TO NEXT SHIFT FOR CONTINUITY OF CARE.
--- NOTE | 2017-04-15 07:35 | NUR ---
RN NOTES RECEIVED PT RESTING IN BED, AWAKE, A/OX3-4. ON ROOM AIR. TOLERATED WELL 02 SAT 100%. NO SIGNS RESPIRATORY DISTRESS NOTED. HOB ELEVATED. DENIES ANY PAIN AT THIS TIME. GILMER MIDLINE IN PLACE. FLUSHED WITH NS PATENT. DRESSING ON RIGHT HIP CLEAN DRY AND INTACT. NO SIGNS OF BLEEDING NOTED. ABDUCTOR PILLOW IN PLACE. . REPOSITIONED FOR COMFORT. CALL LIGHT WITHIN REACH, WILL CONT TO MONITOR
[2017-04-15] MEDS: SENNOSIDES/DOCUSATE SODIUM 1 TAB TABLET PO SCH (08:59)
[2017-04-15] MEDS: SERTRALINE HCL 25 MG TABLET PO SCH (08:59)
[2017-04-15] MEDS: ATENOLOL 50 MG TABLET PO SCH (09:00)
[2017-04-15] MEDS: AMIODARONE HCL 200 MG TABLET PO SCH (09:00)
[2017-04-15] MEDS ORDERED: SODIUM CHLORIDE 1000 MG TABLET.SOL PO SCH (09:30)
--- NOTE | 2017-04-15 11:45 | NUR ---
RN NOTES DANNIELLE BA AT BEDSIDE, DRESSING CHANGE DONE ON RIGHT HIP. POST OP SITE APPEARS HEALING, NO S/SX OF INFECTION NOTED. PHOTO TAKEN AND FILED ON CHART
--- NOTE | 2017-04-15 11:55 | NUR ---
RN NOTES PT DISCHARGED FROM ICU IN STABLE CONDITION, ALL DISCHARGE INSTRUCTIONS GIVEN, EXITCARE PROVIDED. PAPERWORK SIGNED BY DAUGHTER, COPIES PROVIDED AND SENT WITH THE PATIENT . VS FOLLOWA: BP 115/65 HR OF 70 RR:19 TEMP:98.7. SR ON COUPON REDEMPTION CLERK. CALLED DR PONCE, PER MD TO CONTINUE ALL MEDS, GILMER MIDLINE IN PLACE, DRESSING CDI. SKIN ASSESSMENT DONE, NOTED REDNESS ON PERINEAL AREA, AND MULTIPLE BRUISES ON R HAND, EMRE, R FACE. PHOTO TAKEN AND FILED IN CHART. ABDUCTOR PILLOW IN PLACE. REPORT GIVEN TO DANIEL ALEXANDRE FOR CONTINUITY OF CARE. PT TRANSPORTED TO [facility] VIA AMBULANCE ACCOMPANIED BY [id number]
== END 2017-04-15 12:00 | DRG 301 ==
LOC: ER 22:38 → MEDSG2 23:42 → TELE 23:56 → MED 04-09 12:08 → TELE 04-11 12:00 → TELE1 04-12 09:00 → TELE-TD 04-12 09:22 → ICU 04-12 11:09
PROVIDERS: ADMIT Internal Medicine; ATTEND Internal Medicine
DX: S72.001A Fracture of unspecified part of neck of right femur, initial encounter for closed fracture (principal); N17.0 Acute kidney failure with tubular necrosis; I21.A1 Myocardial infarction type 2; I48.2 Chronic atrial fibrillation; I13.0 Hypertensive heart and chronic kidney disease with heart failure and stage 1 through stage 4 chronic kidney disease, or unspecified chronic kidney disease; E44.0 Moderate protein-calorie malnutrition; I31.3 Pericardial effusion (noninflammatory); I27.20 Pulmonary hypertension, unspecified; I50.30 Unspecified diastolic (congestive) heart failure; E87.1 Hypo-osmolality and hyponatremia; S42.301A Unspecified fracture of shaft of humerus, right arm, initial encounter for closed fracture; E83.42 Hypomagnesemia; E78.5 Hyperlipidemia, unspecified; E86.0 Dehydration; D50.9 Iron deficiency anemia, unspecified; D63.8 Anemia in other chronic diseases classified elsewhere; D72.829 Elevated white blood cell count, unspecified; W18.30XA Fall on same level, unspecified, initial encounter; I25.10 Atherosclerotic heart disease of native coronary artery without angina pectoris; K21.9 Gastro-esophageal reflux disease without esophagitis; N18.9 Chronic kidney disease, unspecified; F41.9 Anxiety disorder, unspecified; Y93.9 Activity, unspecified; Y92.009 Unspecified place in unspecified non-institutional (private) residence as the place of occurrence of the external cause; Z68.29 Body mass index [BMI] 29.0-29.9, adult
CPT/HCPCS: 36415; 71010-TC; 72170-TC; 73501; 73502; 80048-TC; 80053-TC; 80061-TC; 81000-TC; 82306; 82570-TC; 82728-TC; 83540-TC; 83735-TC; 83935-TC; 84100-TC; 84300-TC; 84439-TC; 84443-TC; 84484-TC; 85025-TC; 85610-TC; 85730-TC; 86850-TC; 86921-TC; 87040-TC; 87081-TC; 87086-TC; 88305-TC; 88311-TC; 93307-TC; 97110-TC; 97112-TC; 97116-TC; 97530-TC; A4606; A6402; J0282; J0330; J0690; J0696; J1160; J1170; J1644; J1650; J1940; J2250; J2405; J3010; J3475; J3490; J7030; J7050; J7060; P9016-BL; Z7610